=== PATIENT | female | born 1940 | race Caucasian/White ===

== ENCOUNTER 2017-07-31 13:05 | Emergency (ER) | payer MEDICARE, BC ==
[~2017-07-31] VITALS: Ht 162.6 cm; Wt 90.5 kg
[2017-07-31 13:06] VITALS: BP 176/81; PULSE 91; RESP 15; TEMP 97.9; O2SAT 98
--- NOTE | 2017-07-31 13:33 | PD ---
Physical Exam Date Seen by Provider: Jul 31, 2017 Time Seen by Provider: 13:29 Narrative 77-year-old female from [place] presents emergency department with bites to the right third and fifth toe which she feels is probably from hands. She has localized pain, swelling, but no drainage. Some warmth and redness locally. She has no fever or chills. Her tetanus is up-to-date. Patient is a type II diabetic, just on oral medications. Patient is allergic to flu shots and sumatriptan. Data Data Last Documented VS Vital Signs Date Time Temp Pulse Resp B/P (MAP) Pulse Ox O2 Delivery O2 Flow Rate FiO2 07/31/17 13:06 97.9 91 15 176/81 (112) 98 MDM Medical Record Reviewed: Yes Supervised Visit with EDMUND: Yes Narrative Course Vitals are stable. Patient awaiting bed placement. Condition: Stable Hung Strickland Jul 31, 2017 13:33
[2017-07-31] MEDS ORDERED: METF500T PO (13:45)
[2017-07-31] MEDS ORDERED: ASPI-110 PO (13:45)
[2017-07-31] MEDS ORDERED: LATA0.002 EACH EYE (13:45)
[2017-07-31] MEDS ORDERED: GLIP5TAB8 PO (13:45)
[2017-07-31] MEDS ORDERED: [UNRECOGNIZED DRUG - OTHER] (13:45)
[2017-07-31] MEDS ORDERED: TIMO0.5S30 EACH EYE (13:45)
[2017-07-31] MEDS ORDERED: ATOR1TAB18 PO (13:45)
[2017-07-31] MEDS ORDERED: CEPH-460 PO (13:46)
[2017-07-31] MEDS ORDERED: BACT800T5 PO (13:46)
--- NOTE | 2017-07-31 13:46 | PD ---
HPI Chief Complaint: Bite or Sting Time Seen by Provider: 13:43 Travel History International Travel<30 days: No Contact w/Intl Traveler<30days: No Traveled to known affect area: No History of Present Illness HPI 77-year-old female presents emergency Department with complaint of ant bites to her right foot toes since Sunday. Says she did see small red ants on her toes. Reports swelling and erythema. Reports a blister to the right third toe. Denies drainage. Denies paresthesias, loss of sensation, decreased range of motion, decreased strength to the affected extremity. Denies fever, vomiting. Reports itching to the area. Denies pain. Has been using topical hydrocortisone cream for symptomatic management. Says the area feels tight. No known relieving or aggravating factors. Up-to-date on tetanus vaccination. History of diabetes and takes Capozide metformin. Has no other medical complaints. Dr. Ricardo Carter's primary care and she has follow-up appointment with him on August 06. Allergies to flu vaccine and topiramate. No other modifying factors or associated signs and symptoms. PFSH Past Medical History Cardiovascular Problems: Yes Diabetes: Yes Social History Tobacco Use: No Allergies-Medications (Allergen,Severity, Reaction): Coded Allergies: topiramate (Verified Allergy, Severe, Anaphylaxis, 07/31/17) Uncoded Allergies: FLU VACCINE (Allergy, Severe, Anaphylaxis, 07/31/17) Reported Meds & Prescriptions Reported Meds & Active Scripts Active Bactrim DS (Sulfamethoxazole-Trimethoprim) 800-160 Mg Tab 1 Tab PO BID 10 Days Keflex (Cephalexin) 500 Mg Cap 500 Mg PO Q6H 10 Days Reported Latanoprost Opth Drops (Latanoprost) 0.005% Drops 1 Drop EACH EYE HS Refrigerate until opened. Timolol Opth Drops 0.5 % Soln 1 Drop EACH EYE BID Atorvastatin (Atorvastatin Calcium) 80 Mg Tab 80 Mg PO HS [Triampterine] Glipizide 5 Mg Tab 5 Mg PO DAILY Take 30 minutes before a meal Metformin (Metformin HCl) 500 Mg Tab 50 Mg PO BIDPC Aspirin 81 (Aspirin) 81 Mg Tabdr 81 Mg PO DAILY Review of Systems Except as stated in HPI: all other systems reviewed are Neg Physical Exam Narrative GENERAL: Well-nourished, well-developed elderly female patient, in no acute distress; afebrile, nontoxic-appearing SKIN: Warm and dry. Dorsal aspect of right third toe with approximately 1 cm in diameter blister; right fifth toe with pinpoint blister noted; third, fourth and fifth toes with erythema, warmth to touch and erythema extending to the metatarsal region. No lymphangitis. Right lower extremity supple and non- tense with 2+ pedal pulses and sensory intact. HEAD: Atraumatic. Normocephalic. EYES: Pupils equal and round. No scleral icterus. No injection or drainage. ENT: Mucosa pink and moist. Airway patent. NECK: Trachea midline. CARDIOVASCULAR: Regular rate. RESPIRATORY: No accessory muscle use. GASTROINTESTINAL: Obese. MUSCULOSKELETAL: No obvious deformities. No clubbing. No cyanosis. No edema. NEUROLOGICAL: Awake and alert. Oriented 3. No obvious cranial nerve deficits. Motor grossly within normal limits. Normal speech. PSYCHIATRIC: Appropriate mood and affect; insight and judgment normal. Data Data Last Documented VS Vital Signs Date Time Temp Pulse Resp B/P (MAP) Pulse Ox O2 Delivery O2 Flow Rate FiO2 07/31/17 13:06 97.9 91 15 176/81 (112) 98 Orders Orders Ed Discharge Order (07/31/17 13:46) MDM Medical Decision Making Medical Screen Exam Complete: Yes Emergency Medical Condition: Yes Medical Record Reviewed: Yes Differential Diagnosis Infected insect bite, blister, secondary infection Narrative Course 77-year-old female with and bites to her right third, fourth, fifth toes that appear to have secondary infection. I did drain the blister to the right third toe. See my procedure note. Tetanus is up-to-date. Patient is afebrile and nontoxic-appearing. Denies fever, vomiting. Bactrim and Keflex prescribed for home. Instructed patient to follow up with podiatry. She does have a follow- up appointment with her primary care provider on August 06. Instructed patient to follow up with primary care provider. Patient verbalizes understanding and agreement with treatment plan. Patient is medically cleared and stable for discharge. Discussed reasons to return to the emergency department. Patient agrees with treatment plan. The patients vital signs are stable and the patient is stable for outpatient follow-up and treatment. Patient discharged home, stable and in no acute distress. Procedures Procedure Narrative Drainage of blister: The area of the blister was cleaned with an alcohol pad. A sterile 18-gauge needle was used to puncture the side of the blister. Blister drained. Sterile dressing applied. Patient tolerated well. Diagnosis Primary Impression: Insect bite of foot, right, infected Qualified Codes: S90.861A - Insect bite (nonvenomous), right foot, initial encounter; L08.9 - Local infection of the skin and subcutaneous tissue, unspecified; W57.XXXA - Bitten or stung by nonvenomous insect and other nonvenomous arthropods, initial encounter Referrals: [employer] Primary Care Physician Patient Instructions: Blister (ED), Cellulitis (ED), General Instructions, Insect Bite or Sting (ED) Additional Instructions: Ibuprofen or Tylenol as instructed and as needed for pain and inflammation [id number] topicals to reduce itch Benadryl as directed and as needed to reduce itch Follow-up with your primary care provider Return to the emergency department immediately with worsening of symptoms Med/Other Pt SpecificInfo: Prescription(s) given Scripts Sulfamethoxazole-Trimethoprim (Bactrim DS) 800-160 Mg Tab 1 TAB PO BID for Infection for 10 Days, #20 TAB 0 Refills Prov: Kelle Perez 07/31/17 Cephalexin (Keflex) 500 Mg Cap 500 MG PO Q6H for Infection for 10 Days, #40 CAP 0 Refills Prov: Kelle Perez 07/31/17 Disposition: 01 DISCHARGE HOME Condition: Stable Kelle Perez Jul 31, 2017 13:46
== END 2017-07-31 14:16 | disposition home or self-care (01) ==
LOC: NEPK 13:05
DX: S90.861A Insect bite (nonvenomous), right foot, initial encounter (principal); E11.9 Type 2 diabetes mellitus without complications; W57.XXXA Bitten or stung by nonvenomous insect and other nonvenomous arthropods, initial encounter; Z79.82 Long term (current) use of aspirin; Z79.899 Other long term (current) drug therapy
CPT/HCPCS: 99284